=== PATIENT | male | born 1935 | race Caucasian/White ===

== ENCOUNTER 2016-12-01 19:24 | Inpatient (IN) ==
[2016-12-01] MEDS ORDERED: ALBUTEROL/IPRATROPIUM 2.5mg-0.5mg/3ml NEB AEROSOL ONE (19:45)
--- OUTSIDE RECORDS SUMMARY | 2016-12-01 19:45 | External Medical Summary | Referral Summary ---
:1935 Author Organization [facility] Address [address] [place] [address] [place] [address] Care Team Providers Name Role Phone Maria Roldan Primary Care Physician Encounter VC Date(s): 09/23/14 - 09/23/14 [facility] [place] [phone] [place] Discharge Disposition: 01-Home or Self Care Attending Physician: Gil Anders APRN Admitting Physician: Gil Anders APRN Vital Signs No data available for this section Problem List No data available for this section Allergies, Adverse Reactions, Alerts No data available for this section Medications Depakote 500 mg oral delayed release tablet See Instructions, TAKE ONE TABLET BY MOUTH TWICE A DAY, # 60 tabs, eRx: [facility] #[id number], TAKE ONE TABLET BY MOUTH TWICE A DAY Start Date: 02/11/15 Status: OrderedJanuvia 100 mg oral tablet 100 mg 1 tabs, Oral, Daily, # 90 tabs, 3 Refill(s), Pharmacy: [facility] # [id number] Start Date: 09/23/14 Status: OrderedLevemir FlexPen 100 units/mL subcutaneous solution See Instructions, SubCutaneous 7 UNITS AM AND 18 UNITS PM, # 1 boxes, 3 Refill(s ), [facility] #[id number], SubCutaneous 7 UNITS AM AND 18 UNITS PM Start Date: 09/25/14 Status: Ordered Results No data available for this section Immunizations No data available for this section Procedures No data available for this section Social History No data available for this section Assessment and Plan No data available for this section
--- OUTSIDE RECORDS SUMMARY | 2016-12-01 19:45 | External Medical Summary ---
:1935 Author Organization eClinical[employer] Care Team Providers Name Role Phone Wilbur Yu Provider Role Unavailable Allergies No Known Allergies Problems Problem Type Condition ICD-9 Code Onset Dates Condition Status Problem Hiatal hernia 553.3 Active Problem Type II diabetes mellitus 250.00 Active Problem Edema 782.3 Active Problem Basal cell carcinoma of scalp 173.41 Active and skin of neck Problem Allergic rhinitis 477.9 Active Problem Skin lesion of hand 709.9 Active Problem Bipolar 1 disorder, mixed 296.60 Active Problem Carotid stenosis 433.10 Active Problem Coronary atherosclerosis 414.00 Active Problem Asthma 493.90 Active Problem V tach 427.1 Active Problem PSA elevation 790.93 Active Problem Incontinence of urine 788.30 Active Problem Encounter for long-term V58.69 Active (current) use of other medications Problem Pulmonary hypertension 416.8 Active Problem Hyperlipidemia 272.4 Active Problem LVH (left ventricular 429.3 Active hypertrophy) Problem 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
--- OUTSIDE RECORDS SUMMARY | 2016-12-01 19:45 | External Medical Summary | Referral Summary ---
:1935 Author Organization [facility] Address [address] [place] [address] [place] [address] Care Team Providers Name Role Phone Maria Roldan Primary Care Physician Encounter VC Date(s): 11/11/14 - 11/11/14 [facility] [place] [phone] [place] Discharge Disposition: [...] TWICE A DAY, # 60 tabs, eRx: [facility] #[id number], TAKE ONE TABLET BY MOUTH TWICE A DAY Start Date: 02/11/15 Status: OrderedJanuvia 100 mg oral tablet 100 mg 1 tabs, Oral, Daily, # 90 tabs, 3 Refill(s), Pharmacy: [facility] # [id number] Start Date: 09/23/14 Status: OrderedLevemir FlexPen 100 units/mL subcutaneous solution See Instructions, SubCutaneous 7 UNITS AM AND 18 UNITS PM, # 1 boxes, 3 Refill(s ), [facility][id number], SubCutaneous 7 UNITS AM AND 18 UNITS PM Start Date: 09/25/14 Status: Ordered Results No data available for this section Immunizations No data available for this section Procedures No data available for this section Social History No data available for this section Assessment and Plan No data available for this section
--- OUTSIDE RECORDS SUMMARY | 2016-12-01 19:45 | External Medical Summary ---
:1935 Author Organization eClinicalWorks Care Team Providers Name Role Phone Wilbur Yu Provider Role Unavailable Allergies, Adverse Reactions, Alerts Substance Reaction Event Type antihistamine Info Not Available Non Drug Allergy Problems Problem Type Condition ICD-9 Code Onset [...] 427.1 Active Problem PSA elevation 790.93 Active Assessment Type II diabetes mellitus 250.00 Active Assessment Dyspnea 786.09 Active Problem Incontinence of urine 788.30 Active Problem Encounter for long-term V58.69 Active (current) use of other medications Problem Pulmonary hypertension 416.8 Active Problem Hyperlipidemia 272.4 Active Problem LVH (left ventricular 429.3 Active hypertrophy) Problem 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 Active Medications Medication Code Code Instructions Start End Status Dosage System Date NDC 18773-8 100 MG Orally 1 tablet 277-28 Once a day Aspirin NDC 19393-4 325 MG Orally 1 tablet 014-27 Once a day Saw [place] NDC (null) daily 100mg Multiple NDC (null) not defined Vitamin Lycopene NDC ____ not defined Vitamin C NDC ____ not defined GlipiZIDE XL NDC ____ not defined Magnesium NDC (null) daily 400mg Levemir NDC 48672-2 100 UNIT/ML INJECT 14 UNITS Flexpen 439-10 SUBCUTANEOUSLY EVERY DAY [place] 3 NDC (null) 1200 MG BID not defined Metoprolol NDC 98038-3 50 MG Orally one half tab Tartrate 733-01 Twice a day Pepcid AC NDC ____ not defined Flomax NDC 32646-0 0.4 MG Orally 1 capsule 30 058-01 Once a day minutes after the same meal each day Pulmicort [facility] 39568-9 180 MCG/ACT 2 puffs Flexhaler 916-12 Inhalation Twice a day Divalproex [facility] 80192-4 500 MG TAKE 1 TABLET BY Sodium 441-01 MOUTH TWO TIMES A DAY Calcium NDC ____ not defined Procedures Procedure Coding System Code Date Venipuncture CPT-4 36297 May 21, 2014 CBC Automated w Differential CPT-4 10621 May 21, 2014 Xray Chest Frontal & Lateral CPT-4 11328 May 21, 2014 Hemoglobin, Glycosylated CPT-4 30507 May 21, 2014 Comp Metabolic Panel CPT-4 50745 May 21, 2014 Est PT OVOP Service CPT-4 04088 May 21, 2014 Results No Known Results Summary Purpose eClinicalWorks Submission
--- OUTSIDE RECORDS SUMMARY | 2016-12-01 19:45 | External Medical Summary | Referral Summary ---
:1935 Author Organization [facility] Address [address] [place] [address] [place] [address] Care Team Providers Name Role Phone Maria Roldan Primary Care Physician Encounter VC Date(s): 12/05/14 - 12/05/14 [facility] [place] [phone] [place] Discharge Disposition: [...] TWICE A DAY, # 60 tabs, eRx: [facility] #[id number], TAKE ONE TABLET BY MOUTH TWICE A DAY Start Date: 02/11/15 Status: OrderedJanuvia 100 mg oral tablet 100 mg 1 tabs, Oral, Daily, # 90 tabs, 3 Refill(s), Pharmacy: [facility] # [id number] Start Date: 09/23/14 Status: OrderedLevemir FlexPen 100 units/mL subcutaneous solution See Instructions, SubCutaneous 7 UNITS AM AND 18 UNITS PM, # 1 boxes, 3 Refill(s ), [facility][id number], SubCutaneous 7 UNITS AM AND 18 UNITS PM Start Date: 09/25/14 Status: Ordered Results No data available for this section Immunizations No data available for this section Procedures No data available for this section Social History No data available for this section Assessment and Plan No data available for this section
--- OUTSIDE RECORDS SUMMARY | 2016-12-01 19:45 | External Medical Summary | Referral Summary ---
:1935 Author Organization [facility] Address [address] [place] [address] [place] [address] Care Team Providers Name Role Phone Maria Roldan Primary Care Physician Encounter VC Date(s): 11/04/14 - 11/04/14 [facility] [place] [place] [phone] [place] Discharge Disposition: [...] TWICE A DAY, # 60 tabs, eRx: [facility] #[id number], TAKE ONE TABLET BY MOUTH TWICE A DAY Start Date: 02/11/15 Status: OrderedJanuvia 100 mg oral tablet 100 mg 1 tabs, Oral, Daily, # 90 tabs, 3 Refill(s), Pharmacy: [facility] # [id number] Start Date: 09/23/14 Status: OrderedLevemir FlexPen 100 units/mL subcutaneous solution See Instructions, SubCutaneous 7 UNITS AM AND 18 UNITS PM, # 1 boxes, 3 Refill(s ), [facility][id number], SubCutaneous 7 UNITS AM AND 18 UNITS PM Start Date: 09/25/14 Status: Ordered Results No data available for this section Immunizations No data available for this section Procedures No data available for this section Social History No data available for this section Assessment and Plan No data available for this section
--- OUTSIDE RECORDS SUMMARY | 2016-12-01 19:45 | External Medical Summary | Referral Summary ---
:1935 Author Organization [facility] Address [address] [place] [address] [place] [address] Care Team Providers Name Role Phone Maria Roldan Primary Care Physician Encounter VC Date(s): 10/29/14 - 10/29/14 [facility] [place] [phone] [place] Discharge Disposition: 01-Home or Self Care Attending Physician: Maria Roldan MD Admitting Physician: Maria Roldan MD Vital Signs No data available for this section Problem List No data available for this section Allergies, Adverse Reactions, Alerts No data available for this section Medications Depakote 500 mg oral delayed release tablet See Instructions, TAKE ONE TABLET BY MOUTH TWICE A DAY, # 60 tabs, eRx: [facility] #[id number], TAKE ONE TABLET BY MOUTH TWICE A DAY Start Date: 02/11/15 Status: OrderedJanuvia 100 mg oral tablet 100 mg 1 tabs, Oral, Daily, # 90 tabs, 3 Refill(s), [id number] Start Date: 09/23/14 Status: OrderedLevemir FlexPen 100 units/mL subcutaneous solution See Instructions, SubCutaneous 7 UNITS AM AND 18 UNITS PM, # 1 boxes, 3 Refill(s ), [facility][id number], SubCutaneous 7 UNITS AM AND 18 UNITS PM Start Date: 09/25/14 Status: Ordered Results No data available for this section Immunizations No data available for this section Procedures No data available for this section Social History No data available for this section Assessment and Plan No data available for this section
--- OUTSIDE RECORDS SUMMARY | 2016-12-01 19:45 | External Medical Summary | Referral Summary ---
:1935 Author Organization [facility] Address [address] [place] [address] [place] [phone] Care Team Providers Name Role Phone Maria Roldan Primary Care Physician Encounter VC Date(s): 10/11/14 - 10/11/14 [facility] [place] [phone] [place] Discharge Disposition: [...] TWICE A DAY, # 60 tabs, eRx: [facility] #[id number], TAKE ONE TABLET BY MOUTH TWICE A DAY Start Date: 02/11/15 Status: OrderedJanuvia 100 mg oral tablet 100 mg 1 tabs, Oral, Daily, # 90 tabs, 3 Refill(s), [facility] [id number] Start Date: 09/23/14 Status: OrderedLevemir FlexPen 100 units/mL subcutaneous solution See Instructions, SubCutaneous 7 UNITS AM AND 18 UNITS PM, # 1 boxes, 3 Refill(s ), [facility][id number], SubCutaneous 7 UNITS AM AND 18 UNITS PM Start Date: 09/25/14 Status: Ordered Results No data available for this section Immunizations No data available for this section Procedures No data available for this section Social History No data available for this section Assessment and Plan No data available for this section
--- OUTSIDE RECORDS SUMMARY | 2016-12-01 19:45 | External Medical Summary | Referral Summary ---
:1935 Author Organization [facility] [address] [place] [address] Care Team Providers Name Role Phone Maria Roldan Primary Care Physician Encounter VC Date(s): 09/14/14 - 09/14/14 [facility] [place] [phone] [place] Discharge Disposition: 01-Home or Self Care Attending Physician: Gil Anders APRN Admitting Physician: Gil Adners APRN Vital Signs No data available for this section Problem List No data available for this section Allergies, Adverse Reactions, Alerts No data available for this section Medications Depakote 500 mg oral delayed release tablet See Instructions, TAKE ONE TABLET BY MOUTH TWICE A DAY, # 60 tabs, eRx: [facility] #[id number], TAKE ONE TABLET BY MOUTH TWICE A DAY Start Date: 02/11/15 Status: OrderedJanuvia 100 mg oral tablet 100 mg 1 tabs, Oral, Daily, # 90 tabs, 3 Refill(s), Pharmacy: [facility] # [id number] Start Date: 09/23/14 Status: OrderedLevemir FlexPen 100 units/mL subcutaneous solution See Instructions, SubCutaneous 7 UNITS AM AND 18 UNITS PM, # 1 boxes, 3 Refill(s ), [facility][id number], SubCutaneous 7 UNITS AM AND 18 UNITS PM Start Date: 09/25/14 Status: Ordered Results No data available for this section Immunizations No data available for this section Procedures No data available for this section Social History No data available for this section Assessment and Plan No data available for this section
--- OUTSIDE RECORDS SUMMARY | 2016-12-01 19:45 | External Medical Summary ---
[...] Instructions Start End Status Dosage System Date Date Ong 3 NDC (null) 1200 MG BID not defined Lycopene NDC ____ not defined Pepcid AC NDC ____ not defined Divalproex NDC 96145-4 500 MG TAKE 1 TABLET BY Sodium 441-01 MOUTH TWO TIMES A DAY Vitamin C NDC ____ not defined Saw [place] NDC (null) daily 100mg Aspirin NDC 00205-6 325 MG Orally 1 tablet 014-27 Once a day Pulmicort NDC 97411-2 180 MCG/ACT 2 puffs Flexhaler 916-12 Inhalation Twice a day Flomax NDC 06424-6 0.4 MG Orally 1 capsule 30 058-01 Once a day minutes after the same meal each day GlipiZIDE XL NDC ____ not defined Calcium NDC ____ not defined Metoprolol NDC 94612-5 50 MG Orally one half tab Tartrate 733-01 Twice a day Januvia NDC 95879-6 100 MG Orally 1 tablet 277-28 Once a day Multiple NDC (null) [place] [address]-5 100 UNIT/ML INJECT 14 UNITS Flexpen 439-10 SUBCUTANEOUSLY EVERY DAY Magnesium NDC (null) daily 400mg Results No Known Results Summary Purpose eClinicalWorks Submission
--- OUTSIDE RECORDS SUMMARY | 2016-12-01 19:45 | External Medical Summary | Summary of Care ---
:1935 Author Name Otoniel Raymundo M.D. Address [address] [place] [address] [place] [address] Care Team Providers Name Role Phone Otoniel Raymundo M.D. Unavailable Unavailable Rigo Schmidt Unavailable Unavailable Unavailable Unavailable Unavailable Functional Status Functional Status Health Issues Name Dates Details Functional status health issues are not documented Status: Cognitive Status Health Issues Name Dates Details Cognitive status health issues are not documented Status: Problems Name Dates Details Urinary frequency (788.41, R35.0) Status: Active Urinary dribbling (788.35, N39.43) Status: Active Incontinent of urine (788.30, R32) Status: Active Arthritis (716.90, M19.90) Status: Active Left ankle pain (719.47, M25.572) Status: Active BPH (benign prostatic hypertrophy) (600.00, N40.0) Status: Active Edema (782.3, R60.9) Status: Active Atherosclerosis (440.9, I70.90) Status: Active Cardiac dysrhythmia (427.9, I49.9) Status: Active Chronic kidney disease (585.9, N18.9) Status: Active Deep vein thrombosis (453.40, I82.409) Status: Active Diabetes (250.00, E11.9) Status: Active Dyslipidemia (272.4, E78.5) Status: Active Hypertension (401.9, I10) Status: Active Paroxysmal atrial fibrillation with RVR (427.31, I48.0) Status: Active Pulmonary embolism (415.19, I26.99) Status: Active Ventricular tachycardia (paroxysmal) (427.1, I47.2) Status: Active Prophylactic antibiotic (V58.62, Z79.2) Status: Active BPH with obstruction/lower urinary tract symptoms (600.01, N40.1) Status: Active Medications Name Dates Details Metoprolol Tartrate 50 MG Oral Tablet Refills: 0 Active Tamsulosin HCl 0.4 MG CP24 Refills: 0 Active Divalproex Sodium 500 MG Oral Tablet Delayed Release Refills: 0 Active Levemir FlexPen 100 UNIT/ML SOLN Refills: 0 Active Januvia 100 MG Oral Tablet Refills: 0 Active Ciprofloxacin HCl - 500 MG Oral Tablet take 1 tablet before cysto procedure with Dr. Raymundo. Quantity: 1 Refills: 0 Otoniel Raymundo M.D. 12-Nov-2015 Active Allergies and Adverse Reactions Name Dates Details No Known Drug Allergies (Allergy) Status: Active Past Medical History Name Dates Details History of H/O right coronary artery stent placement (V45.82, Z95.5) Status : Resolved Procedures Procedure Dates Details History of Knee Arthroplasty History of Total Knee Arthroplasty Procedures not documented Immunization Name Dates Details Immunizations not documented Family History Unknown Family Member Name Dates Details Family history of Coronary artery disease (414.00, I25.10) Comments: Family History Status: Active Mother Name Dates Details Family history of kidney disease (V18.69, Z84.1) Status: Active Father Name Dates Details Family history of myocardial infarction (V17.3, Z82.49) Status: Active Social History Name Dates Details - Status: Smoking Status Name Dates Details Never smoker Vital Signs Date Test Result Details 12-Nov-2015 13:37 BP Systolic 166 mm[Hg] Status: Comments: Location: ; Position: BP Diastolic 91 mm[Hg] Status: Comments: Location: ; Position: Heart Rate 62 /min Status: Comments: Location: ; Height 67 in Status: Weight 199.4 lb Status: Body Mass Index Calculated 31.23 kg/m2 Status: Body Surface Area Calculated 2.02 m2 Status: Results Date Description Value Details Results not documented Plan of Care Name Dates Details Planned Observations Planned Goals not documented Planned Encounters Appointment; Provider: Otoniel Raymundo M.D. On 19-Nov-2015 15:45 Interventions Provided Medication ChangesCiprofloxacin HCl - 500 MG Oral Tablet - Start Instructions Name Dates Details Instructions not documented Encounters Appointment; Otoniel Raymundo M.D. On 12-Nov-2015 Encounter Diagnosis: Problem not documented 13:15
--- OUTSIDE RECORDS SUMMARY | 2016-12-01 19:45 | External Medical Summary | Summary of Care ---
:1935 Author Name Otoniel Raymundo M.D. Address [address] [place] [address] [place] [address] Care Team Providers Name Role Phone Otoniel [...] Encounters Appointment; Provider: Otoniel Raymundo M.D. On 19-May-2016 13:00 Instructions Name Dates Details Instructions not documented Encounters Appointment; Otoniel Raymundo M.D. On 12-Nov-2015 Encounter Diagnosis: Problem not documented 13:15
--- OUTSIDE RECORDS SUMMARY | 2016-12-01 19:45 | External Medical Summary | Referral Summary ---
:1935 Author Organization [facility] Address [address] [place] [address] [place] [address] Care Team Providers Name Role Phone Maria Roldan Primary Care Physician Encounter VC Date(s): 07/29/14 - 07/29/14 [facility] [place] [phone] [place] Discharge Disposition: 01-Home or Self Care Attending Physician: Gil Anders APRN Admitting Physician: Gil Anders APRN Vital Signs No data available for this section Problem List No data available for this section Allergies, Adverse Reactions, Alerts No data available for this section Medications Depakote 500 mg oral delayed release tablet 500 mg 1 tabs, Oral, BID, [place] [facility] [phone], # 180 tabs, 3 Refill(s) , 1 tabs Oral BID Start Date: 01/24/15 Status: OrderedJanuvia 100 mg oral tablet 100 mg 1 tabs, Oral, Daily, # 90 tabs, 3 Refill(s), Pharmacy: [facility] # [id number] Start Date: 09/23/14 Status: OrderedLevemir FlexPen 100 units/mL subcutaneous solution See Instructions, SubCutaneous 7 UNITS AM AND 18 UNITS PM, # 1 boxes, 3 Refill(s ), [facility][id number], SubCutaneous 7 UNITS AM AND 18 UNITS PM Start Date: 09/25/14 Status: Ordered Results No data available for this section Immunizations No data available for this section Procedures No data available for this section Social History No data available for this section Assessment and Plan No data available for this section
--- NOTE | 2016-12-01 19:50 | Emergency Department Report ---
URI/Sore Throat HPI - General Chief Complaint: Upper Respiratory Infection Stated Complaint: soa Time Seen by Provider: 12/01/16 19:37 Source: patient, family Mode of arrival: ambulatory Limitations: no limitations - History of Present Illness HPI Narrative: PT PRESENTS WITH C/O SOA FOR THE LAST SEVERAL WEEKS. HE DENIES ANY CHF OR COPD HISTORY. FAMILY IN THE ROOM STATES HE HAS FREQUENT BOUTS OF BRONCHITIS. HE DOES REPORT PEDAL EDEMA. AND SAYS HIS RESPIRATORY DIFFICULTIES ARE INTERMITTENT MD Complaint: cough Onset (ago): day(s) Associated symptoms: shortness of breath - Related Data Home Medications Medication Instructions Recorded Confirmed Ascorbic Acid [Vitamin C] 500 mg PO DAILY #0 02/10/16 12/01/16 Aspirin 325 mg PO DAILY #0 02/10/16 12/01/16 Famotidine [Pepcid AC] 20 mg PO DAILY #0 02/10/16 12/01/16 Multivitamin [Multi-Day Vitamins] 1 tab PO DAILY #0 02/10/16 12/01/16 Calcium Carbonate [Calcium] 500 mg PO DAILY 12/01/16 12/01/16 Calcium Polycarbophil [Fiber] 625 mg PO BID 12/01/16 12/01/16 Cinnamon Bark [Cinnamon] 500 mg PO HS 12/01/16 12/01/16 Ezetimibe/Simvastatin [Vytorin 1 tab PO HS 12/01/16 12/01/16 10-20 mg Tablet] Furosemide [Lasix] 20 mg PO DAILY 12/01/16 12/01/16 Insulin Detemir [Levemir Flextouch] 25 unit SQ BID 12/01/16 12/01/16 Lycopene 10 mg PO DAILY 12/01/16 12/01/16 Metoprolol Tartrate [Lopressor] 25 mg PO BID 12/01/16 12/01/16 Niacin ER [Niaspan] 500 mg PO HS 12/01/16 12/01/16 [place]-3/Dha/Epa/Fish Oil [Fish Oil 1 cap PO BID 12/01/16 12/01/16 [place]-3 EC 1,200 mg] Saw [place] 100 mg PO HS 12/01/16 12/01/16 glipiZIDE [Glipizide Xl] 7.5 mg PO DAILY 12/01/16 12/01/16 Previous Rx's Medication Instructions Recorded Budesonide Flexhaler [Pulmicort 2 puff INH BID 7 Days #0 02/16/16 180 Mcgflexhaler] Divalproex Sodium [Depakote] 500 mg PO BID 7 Days #14 02/16/16 Sitagliptin Phosphate [Januvia] 100 mg PO DAILY 7 Days #0 02/16/16 Tamsulosin HCl [Flomax] 0.4 mg PO HS 7 Days #0 02/16/16 Allergies Allergy/AdvReac Type Severity Reaction Status Date / Time No Known Allergies Allergy Verified 12/01/16 19:52 Review of Systems All systems: reviewed and negative except as stated Constitutional: Denies: fever, weakness Cardiovascular: Denies: chest pain Respiratory: Reports: cough, dyspnea, wheezes Gastrointestinal: Denies: abdominal pain Neurological: Reports: other (DIZZINESS) PFSH Patient Stated Medical History Coronary Artery Disease Yes Asthma Yes Bronchitis Yes Diabetes Mellitus Type 1 Yes - Social History Smoking status: Never smoker Physical Exam - Limitations Limitations: no limitations - General General appearance: alert, in distress - Normal Exams: Eyes:: Pupils are PERRLA w/ EOMI Neck:: Full range of motion, without adenopathy Cardiovascular:: Regular rate and rhythm, without murmur or gallop (NO PEDAL EDEMA), Pulses 2+ all extremities Abdomen:: Bowel sounds positive, soft, non-tender, non-distended Musculoskeletal:: No tenderness, or deformity noted, good range of motion, all extremities Integumentary:: No rashes Neurological:: Patient is alert (TETLIN), and oriented Psychiatric:: Patient exhibits, appropriate attention, emotion and affect - Expanded Respiratory Exam Location: Left: decreased breath sounds, Right: decreased breath sounds Course - Consultations Consultation #1: MADDOX Time: 20:40 Vital Signs Pulse Rate 61 12/01/16 19:30 Blood Pressure 198/98 H 12/01/16 19:30 Temperature 97.7 F 12/01/16 19:35 Pulse Rate 56 L 12/01/16 20:16 Respiratory Rate 22 12/01/16 20:16 Blood Pressure 181/84 H 12/01/16 20:16 Pulse Oximetry 94 12/01/16 20:16 Upper Respiratory Infection - MDM Narrative Medical decision making narrative: PT TOLERATED DUONEB TREATMENT HOWEVER DID NOT RECEIVE MUCH RELIEF PRIOR TO LABS RESULTED. BNP SIGNIFICANTLY ELEVATED. EKG SHOWS LVH, AND CXR IS CONSISTENT WITH PLEURAL EFFUSIONS 2/[address] MADDOX CONTACTED FOR ADMISSION. QUESTIONS OF PT AND FAMILY ANSWERED. PT TO HAVE ADDITIONAL LASIX IN ED - Differential Diagnosis Differential diagnosis: Likely: upper respiratory infection, sinusitis, viral infection, bronchitis - Lab Data Attestation: I reviewed the patient's lab results. Result diagrams: 12/01/16 20:09 12/01/16 20:09 Lab Results 12/01/16 12/01/16 12/01/16 Range/Units 20:09 20:09 20:09 WBC 6.7 (4.5-11.0) T/MM3 RBC 4.34 L (4.50-5.90) M/MM3 Hgb 13.3 L (13.5-17.5) GM/DL Hct 41.4 (41-53) % MCV 95.4 (80-100) UM3 MCH 30.6 (26-34) UUG MCHC 32.1 (31-37) GM/DL RDW Std Deviation 46.4 (36.9-50.2) FL Plt Count 118 L (130-400) T/MM3 MPV 12.4 (9.4-12.4) UM3 Immature Gran % (Auto) 0.7 H (0.0-0.5) % Neut % (Auto) 63.1 (33-66) % Lymph % (Auto) 20.8 L (23-45) % [place] % (Auto) 13.9 H (0-9.0) % Eos % (Auto) 0.9 (0-4) % Baso % (Auto) 0.6 (0-2) % Neut # 4.2 (1.8-7.7) T/MM3 Lymph # 1.4 (1-4.8) T/MM3 [place] # 0.9 H (0-0.8) T/MM3 Eos # 0.1 (0-0.5) T/MM3 Baso # 0.0 (0-0.2) T/MM3 Abs Immat Gran (auto) 0.05 H (0.00-0.03) T/MM3 Turbidity < 20 (0-20) Sodium 148 H (134-144) MEQ/L Potassium 4.7 (3.6-5) MEQ/L Chloride 109 H (98-107) MEQ/L Carbon Dioxide 29 (22-30) MEQ/L Anion Gap 10 (5-15) MEQ/L BUN 37.0 H (9-20) MG/DL Creatinine 1.4 (0.8-1.5) MG/DL GFR Calculation 49 BUN/Creatinine Ratio 26 (6-26) RATIO Glucose 196 H (75-110) MG/DL Calculated Osmolality 298 H (261-280) MOSM/KG Calcium 9.1 (8.4-10.2) MG/DL Total Bilirubin 0.50 (0.20-1.30) MG/DL Icterus Index < 2 (0-7) AST 28 (17-59) U/L ALT 41 (21-72) U/L Alkaline Phosphatase 53 (38-126) U/L Troponin I 0.015 (0-0.12) ng/ml B-Natriuretic Peptide 5800 H (0-175) pg/mL Total Protein 7.0 (6.3-8.2) G/DL Albumin 4.1 (3.5-5.0) G/DL Globulin 2.9 (2.4-3.6) G/DL Albumin/Globulin Ratio 1.4 (1.1-2.2) RATIO Specimen Hemolysis < 15 < 15 (0-25) - Radiology Data Attestation: I reviewed the patient's radiology results. REPORT PER DR LOERA, BILATERAL PLEURAL EFFUSIONS CONSISTENT WITH CHF EXACERBATION - EKG Data EKG #1 Rate: bradycardia Interpretation: LVH Disposition Clinical Impression: CHF exacerbation Qualifiers: Congestive heart failure type: combined Qualified Code(s): I50.43 - Acute on chronic combined systolic (congestive) and diastolic (congestive) heart failure Diabetes Qualifiers: Diabetes mellitus type: type 1 Diabetes mellitus complication status: with unspecified complications Qualified Code(s): E10.8 - Type 1 diabetes mellitus with unspecified complications Hypertension Qualifiers: Hypertension type: essential hypertension Qualified Code(s): I10 - Essential ( primary) hypertension Disposition: To [facility] Acute Care Condition: Stable Time of Disposition: 21:05 - Seen By: midlevel
[2016-12-01] MEDS ORDERED: FUROSEMIDE 40 MG/4 ML INJECTION IVP ONE (20:50)
[2016-12-01] MEDS: SALINE FLUSH 10ml SYRINGE IVF PRN (21:04)
[2016-12-01] MEDS ORDERED: SALINE FLUSH 10ml SYRINGE IV PRN (22:02)
[2016-12-01 22:59] VITALS: BMI 28.8
--- NOTE | 2016-12-01 23:04 | History & Physical Report ---
<Adan Tom - Last Filed: 12/01/16 23:01> History of Present Illness Date: 12/01/16 Chief complaint: short of breath HPI: This is a 80 y/o male who lives in an independent living setting. The patient has a history of ischemic cardiomyopathy in the past. The patient had noticed increased shortness of breath over the past 3 weeks with PND and orthopnea. The patient was seen by nursing today and noticed increased dyspnea and hypertension. They recommended that he come into the ED for evaluation. In the ED the patient had a CXR that demonstrated increased bilateral pleural effusion with slight pulm vascular congestion. The patient was not significantly hypoxic but was wheezing. The patient at this time will be admitted for diuresis and further assessment of his CHf. Review of Systems Review of systems: no headache, no change in vision, is hard of hearing chronically, no neck or jaw pain, no chest pain, no heart palpitations, sx have been going on for 3 weeks. His sleeping is worsening . Has not notice significant edema to his legs. Unaware of what his weight is doing. mild abdomen pain with cough, bowel movements have been normal, no blood. no focal neuro complaints. 12 point ROS otherwise negative except for outlined above. [facility] Medical History Updates: CHF presumed ischemic, bronchitis, dm2, HTN, cholithiasis, gallstone pancreatitis, CAD s/p ISAURA x 2, paroxysmal atrail fibrillation, CKD 3, dyslipidmia, BPH Surgical History: ISAURA 2, right total knee - Social History Smoking status: Never smoker Substance use type: does not use Alcohol intake frequency: does not drink Housing: assisted living facility Current occupational status: retired Medications Home Medications Medication Instructions Recorded Confirmed Type Ascorbic Acid [Vitamin C] 500 mg PO DAILY #0 02/10/16 12/01/16 History Aspirin 325 mg PO DAILY #0 02/10/16 12/01/16 History Famotidine [Pepcid AC] 20 mg PO DAILY #0 02/10/16 12/01/16 History Multivitamin [Multi-Day Vitamins] 1 tab PO DAILY #0 02/10/16 12/01/16 History Calcium Carbonate [Calcium] 500 mg PO DAILY 12/01/16 12/01/16 History Calcium Polycarbophil [Fiber] 625 mg PO BID 12/01/16 12/01/16 History Cinnamon Bark [Cinnamon] 500 mg PO HS 12/01/16 12/01/16 History Furosemide [Lasix] 20 mg PO DAILY 12/01/16 12/01/16 History Insulin Detemir [Levemir Flextouch] 25 unit SQ BID 12/01/16 12/01/16 History Lycopene 10 mg PO DAILY 12/01/16 12/01/16 History Metoprolol Tartrate [Lopressor] 25 mg PO BID 12/01/16 12/01/16 History [place]-3/Dha/Epa/Fish Oil [Fish Oil 1 cap PO BID 12/01/16 12/01/16 History [place]-3 EC 1,200 mg] Saw [place] 100 mg PO HS 12/01/16 12/01/16 History Allergies Allergy/AdvReac Type Severity Reaction Status Date / Time No Known Allergies Allergy Verified 12/01/16 19:52 Exam Vital Signs: Temperature 97.7 F 12/01/16 19:35 Pulse Rate 56 L 12/01/16 20:16 Respiratory Rate 22 12/01/16 20:16 Blood Pressure 181/84 H 12/01/16 20:16 Pulse Oximetry 94 12/01/16 20:16 Height/Weight/BMI: Height 1.73 m Weight 86.1 kg Body Mass Index 28.8 - Constitutional Present: mild distress, well nourished, well developed, average body habitus, cooperative - Routine HEENT Exam Head: Present: normocephalic, atraumatic Eye: Present: EOMI, conjunctivae pink ENT: Present: mucous membranes moist - Routine Neck Exam Comments: neck somewhat obese, no obvious JVD @ 30 degree inclination - Routine Respiratory Exam Comments: decreased breath sounds. occasional wheeze on examination - Routine Cardiovascular Exam Present: RRR, no murmur. Absent: S3 Comments: careful ascultation did not produce an S3. High confidence in this. - Routine Abdominal Exam Present: soft, non tender - Routine Extremities Exam Comments: tr edema but really only just trace - Routine Skin Exam Present: intact, dry - Routine Neurological Exam Present: alert, oriented X3, CN II-XII intact. Absent: motor deficit, altered mental status - Routine Psychiatric Exam Present: normal affect Results - Labs CBC & Chem 7: 12/01/16 20:09 12/01/16 20:09 Labs: of note that the patient's plt are slightly depressed, otherwise no obvious abnormalities - Echocardiogram Echocardiogram: echo 12/16 with preserved LV function 64% EF - ECG Data Tracing #1 LAE, LVH, sinus grazyna - Imaging and Cardiology Chest x-ray Additional comments: bilateral pleural effusion, cardiomegaly, slight pulm vasc congestion. Assessment and Plan (1) CHF exacerbation Current visit: Yes Status: Acute 12/01/16 23:12 This patient has presumed ischemic cardiomyopathy. He is on daily diuretic therapy and b abel. Patient had an echo 9 months ago that was essentially normal. Not able to tell regarding diastolic component of echo. The patient with increased PND, orthopnea, but no real swelling. Not clear regarding weight gain. CXR is suspicious form mild failure. Admit, tele, rule out, diureses lasix Q12 hrs. order another echo to exclude anoccult event. Patient seems compliant with medications. Is followed by nursing. Continue b abel at least. get med rec done and further assess in am (2) DM type 2 (diabetes mellitus, type 2) Current visit: Yes Status: Acute (3) Diabetes Current visit: Yes Status: Acute 12/01/16 23:14 chronic. hold oral agent, continue insulin with correctional plan, adjust as indicated (4) CAD (coronary artery disease) Current visit: Yes Status: Acute 12/01/16 23:14 history of CAD in the past s/p ISAURA x 2. Patient without chest pain. appreciate diabetes and atypical nature of pain in this population of patient. rule out on tele. make further recommendations. should continue asa, b abel , statin when med rec is updated. It is plausible that the patient had a silent cardiac event recently which has exacerbated his recently documented recovering EF. (5) Thrombocytopenia Current visit: Yes Status: Acute 12/01/16 23:16 will not start lovenox etc for now. recheck. ? smolder ITP vs primary failure of bone marrow at this age. reassess and address with followup. (6) CKD stage 3 secondary to diabetes Current visit: Yes Status: Acute 12/01/16 23:17 stable for now. monitor with repeat labs in the am DVT Prophylaxis: SCD's GI Prophylaxis: Protonix Resuscitation Status: Full Code Hospital Course Summary Disclaimer: The visit summary below is not to be considered part of the above Progress Note. <Maria Del Carmen Saldana - Last Filed: 12/02/16 12:36> History of Present Illness Date: 12/02/16 [facility] Patient Stated Medical History Coronary Artery Disease Yes: 5 stents Asthma Yes Bronchitis Yes Diabetes Mellitus Type 1 Yes Exam Vital Signs: Temperature 97.6 F 12/02/16 11:33 Pulse Rate 55 L 12/02/16 11:33 Respiratory Rate 18 12/02/16 11:33 Blood Pressure 183/90 H 12/02/16 11:33 Pulse Oximetry 94 12/02/16 11:33 Height/Weight/BMI: Height 1.73 m Weight 85.3 kg Body Mass Index 28.8 Results - Labs CBC & Chem 7: 12/02/16 06:12 12/02/16 04:40 Assessment and Plan (1) CHF exacerbation Current visit: Yes Status: Acute (2) Diabetes Current visit: Yes Status: Acute (3) DM type 2 (diabetes mellitus, type 2) Current visit: Yes Status: Acute (4) CAD (coronary artery disease) Current visit: Yes Status: Acute (5) Thrombocytopenia Current visit: Yes Status: Acute (6) CKD stage 3 secondary to diabetes Current visit: Yes Status: Acute Assessment and Plan: 12/02/2016-Dr. Saldana I've seen and examined the patient. I agree with the H&P dictated above by Dr. Tom. Please see my changes/additions below. Chief complaint: Shortness of breath and cough for a few weeks History of present illness: Patient is a 80-year-old male who lives in independent living. His who helps him with his medications has been in detention for the past few weeks after having a knee replacement. He has been complaining of shortness of breath with PND and orthopnea for a couple of weeks. He is also been coughing and has foamy clear phlegm. He denies any chest pains. He has some chronic right shoulder pain which he thinks is from a rotator cuff injury. He denies any fevers or sweats. He states he gets chills when his blood sugars are low and that happens about once a week. He denies any nausea or vomiting. He occasionally has some mild diarrhea. He was admitted last night due to shortness of breath, pulmonary edema, congestive failure. He was started on IV Lasix and has been urinating frequently. He states he is breathing much better. His daughter came in and stated that she notices he seems to be breathing better as well today. He admits that he stopped taking his Lasix because it made him urinate so frequently. He was supposed to be on 20 mg once daily Past medical history Echocardiogram in February 2016 showing left atrial enlargement, LVH, EF of 55- 60%, subtle wall motion abnormality, mild diastolic dysfunction, moderate pulmonary hypertension He sees Dr. Oliva for cardiology care. He has seen Dr. Sahil Grijalva here as well. History of nonsustained V. tach bronchitis Type 2 diabetes mellitus Hypertension cholelithiasis Gallstone pancreatitis coronary artery disease with ISAURA 2 Paroxysmal A. fib Chronic kidney disease stage III Dyslipidemia BPH MRSA of the sputum Past surgical history Lap bobby February 2016 right total knee drug-eluting stent 2 Family history: CHF, CVA in his sister, [place] and his sister, mom with breast cancer, leukemia in one brother and sister Medications: Med list that he is actually taking is very different than the one in the initial med rec Vitamin C 500 mg daily Aspirin 325 mg daily Famotidine 20 mg daily Multivitamin daily Calcium carbonate 500 mg daily Depakote 500 mg twice daily Insulin Levemir 30 mg twice a day Metoprolol tartrate 25 mg twice a day [place]-3 fish oil 1 cap by mouth twice a day Saw palmetto 100 mg daily at bedtime Januvia 100 mg daily Pulmicort Turbuhaler 2 puffs twice a day Magnesium 400 mg by mouth twice a day Flomax 0.4 mg by mouth twice a day He states he is no longer taking fiber pills, cinnamon bark, Vytorin, Lasix, lycopene, or glipizide. No known drug allergies Comprehensive review of systems He has had a rash on his abdomen and back for 65 years. He has chronic right shoulder pain. He denies any other complaints other than that above in history of present illness Physical exam GEN-alert, no acute distress HEENT-sclera anicteric, pupils are equal, or varix is moist NECK-supple, no JVD appreciated CV-regular rate and rhythm, no significant murmur CHEST-currently clear to auscultation bilaterally ABD-soft, nontender with positive bowel sounds -no [place] EXT-trace edema NEURO-no focal deficits SKIN-warm and dry he has a mild erythematous rash on his abdomen and back which he states has been there for 65 years Lab this morning white count is 7, hemoglobin 12.4, platelets 92. Sodium is 148 , BUN 36, creatinine 1.3. Troponin is negative 3. BNP is 5800 Impression CHF exacerbation likely secondary to the patient not taking his Lasix due to frequent urination Type 2 diabetes mellitus-patient reports labile blood sugars at home and states 2 weeks ago his Levemir was increased from 25 twice a day to 30 twice a day Coronary artery disease Thrombocytopenia mild Chronic kidney disease Possible mild memory deficits Plan Continue IV Lasix PT OT eval and treat Monitor electrolytes closely with diuresis SCDs for DVT prophylaxis Possible discharge in the next 1-2 days Echocardiogram was obtained and is pending Chest x-ray tomorrow Hospital Course Summary Disclaimer: The visit summary below is not to be considered part of the above Progress Note.
--- NOTE | 2016-12-02 07:57 | XRay Report ---
INDICATION: COUGH soa PROCEDURE: CHEST 2-VIEWS UPRIGHT (PA & LAT) Encounter: Initial COMPARISON: February 13, 2016 FINDINGS: Lungs are better inflated on the prior study. There are mildly increased interstitial markings in the mid to lower lung zones and trace pleural effusions with lower lobe airspace opacities. No pneumothorax. Heart size and mediastinal contours are stable. Impression: Mild pulmonary edema, probably due to congestive failure. Small area of developing pneumonia cannot be entirely excluded in the lower lobes. .
[2016-12-02] MEDS: BUDESONIDE INH.SOLN 0.5mg/2ml NEB AEROSOL SCH ×2 (09:04→20:36)
[2016-12-02] MEDS: ALBUTEROL 2.5mg/3ml (0.083%) NEB AEROSOL PRN ×2 (09:17→20:37)
[2016-12-02] MEDS: FUROSEMIDE 40 MG/4 ML INJECTION IVP SCH ×2 (09:48→17:08)
[2016-12-02] MEDS: DIVALPROEX 500 MG TABLET PO SCH ×2 (09:48→20:23)
[2016-12-02] MEDS: ASPIRIN 325 MG TABLET PO SCH (09:48)
[2016-12-02] MEDS: INSULIN DETEMIR 100unit/ml INJECTION SQ SCH ×2 (09:49→20:23)
[2016-12-02] MEDS: SALINE FLUSH 10ml SYRINGE IVF PRN (09:55)
[2016-12-02] MEDS: FAMOTIDINE 20 MG TABLET PO SCH (10:46)
[2016-12-02] MEDS ORDERED: TAMSULOSIN 0.4 MG CAPSULE PO SCH (21:00)
--- NOTE | 2016-12-02 21:39 | Echocardiogram ---
DATE OF STUDY 12/02/2016 INDICATIONS Congestive heart failure. TECHNICAL QUALITY Technically good 2D, M-mode, Doppler echocardiographic images were submitted for interpretation. FINDINGS 1. CARDIAC CHAMBERS: The left atrium is dilated. Left ventricle is normal in size. The aortic root diameter of 4.0 cm is mildly dilated. The right heart appears to be normal in size. Normal RV contractility. Atherosclerosis in the aortic wall is noted. 2. LEFT VENTRICLE: Borderline LVH is present, measuring 10 mm in the posterior wall, 11 mm in the septal wall. Wall motion analysis is abnormal with basal anterior wall and septal hypokinesis, more prominent in the inferior septum. Inferolateral wall appears hypokinetic. Ward contractility appears preserved. LV systolic dysfunction of a mild degree appears to be present with an ejection fraction estimated at about 45%. Diastolic function parameters show E/A ratio of 1.4, E/e' ratio of 16.8, suggestive of grade 2/4 diastolic dysfunction (pseudonormal pattern). 3. VALVES: Aortic and mitral valve exhibit [id number] sclerotic changes, most evident in the posterior mitral annulus. Leaflet excursion and valve opening appears normal. Tricuspid valve structure and motion appear normal. Normal valve excursion. 4. DOPPLER: Mild insufficiency involving mitral, tricuspid and pulmonic valves , none of hemodynamic significance. No evidence of valvular stenosis. 5. No evidence of pericardial effusion, intracardiac masses, thrombi, vegetations or shunts. 6. Flow velocities are reduced at the aortic valve level and LVOT level, suggestive of reduced cardiac output. 7. Central venous pressure appears elevated based on partial respiratory variation of less than 50% and mildly dilated IVC. IMPRESSION 1. Left atrial enlargement. 2. Mild ischemic cardiomyopathy. Regional wall motion abnormality as described above suggestive of coronary artery disease with ejection fraction estimated at 45%. 3. Diastolic dysfunction grade 2/4 (pseudonormal pattern). 4. Mild mitral regurgitation. 5. Pulmonary hypertension, systolic PA pressure of 56 mmHg, with normal RV size and systolic function. 6. Elevated central venous pressure. 7. Mitral annular calcification. 8. Reduced cardiac output. RECOMMENDATION Cardiology consultation for suspected coronary artery disease. MTDD
[2016-12-02] MEDS: ACETAMINOPHEN 325 MG TABLET PO PRN (23:30)
[2016-12-03] MEDS: ACETAMINOPHEN 325 MG TABLET PO PRN (04:06)
--- NOTE | 2016-12-03 08:20 | XRay Report ---
Indication: pulm edema PROCEDURE: XR chest 1V: Encounter: Initial Comparison: December 01, 2016 Findings: Lungs are hypoinflated. Pulmonary vascular prominence has decreased. No new areas of consolidation. No pneumothorax. Probable trace effusions. Heart size and mediastinal contours are stable. Hiatal hernia. Impression: Improving pulmonary edema. .
[2016-12-03] MEDS: FUROSEMIDE 40 MG/4 ML INJECTION IVP SCH ×2 (08:57→17:16)
[2016-12-03] MEDS: ASPIRIN 325 MG TABLET PO SCH (08:57)
[2016-12-03] MEDS: FAMOTIDINE 20 MG TABLET PO SCH (09:03)
[2016-12-03] MEDS: DIVALPROEX 500 MG TABLET PO SCH (09:03)
[2016-12-03] MEDS: INSULIN DETEMIR 100unit/ml INJECTION SQ SCH (09:03)
[2016-12-03] MEDS: BUDESONIDE INH.SOLN 0.5mg/2ml NEB AEROSOL SCH (10:38)
[2016-12-03] MEDS ORDERED: SITAGLIPTIN 100 MG TABLET PO SCH (10:45)
[2016-12-03 10:51] VITALS: O2SAT 93
[2016-12-03 11:56] VITALS: BP 151/82; PULSE 60; RESP 20; TEMP 97.6
[2016-12-03] MEDS ORDERED: PNEUMOCOCCAL VAC ADMIN CHARGE INJ ONE (15:29)
--- NOTE | 2016-12-03 15:36 | Discharge Summary ---
<Michelle Mabry - Last Filed: 12/03/16 16:32> Discharge Information Date of admission: 12/01/16 21:43 Anticipated date of discharge: 12/03/16 Attending Physician: Maria Del Carmen Saldana MD Primary care physician: Maria Roldan MD Consults: - Discharge Diagnosis (1) CHF exacerbation Status: Acute (2) Diabetes Status: Acute (3) DM type 2 (diabetes mellitus, type 2) Status: Acute (4) CAD (coronary artery disease) Status: Acute (5) Thrombocytopenia Status: Acute (6) CKD stage 3 secondary to diabetes Status: Acute Discharge Diagnosis: CHF exacerbation likely secondary to the patient not taking his Lasix due to frequent urination Type 2 diabetes mellitus-patient reports labile blood sugars at home and states 2 weeks ago his Levemir was increased from 25 twice a day to 30 twice a day Coronary artery disease Thrombocytopenia mild Chronic kidney disease Possible mild memory deficits - Laboratory Labs: 12/03/16 05:09 12/03/16 05:09 Laboratory Tests 12/01/16 12/01/16 12/01/16 20:09 20:09 22:51 Troponin I 0.015 0.021 B-Natriuretic Peptide 5800 H 12/02/16 08:54 Troponin I 0.028 B-Natriuretic Peptide - Radiology Radiology: Echocardiogram Type of Exam(s): US echo doppler complete DATE OF STUDY 12/02/2016 INDICATIONS Congestive heart failure. TECHNICAL QUALITY Technically good 2D, M-mode, Doppler echocardiographic images were submitted for interpretation. FINDINGS 1. CARDIAC CHAMBERS: The left atrium is dilated. Left ventricle is normal in size. The aortic root diameter of 4.0 cm is mildly dilated. The right heart appears to be normal in size. Normal RV contractility. Atherosclerosis in the aortic wall is noted. 2. LEFT VENTRICLE: Borderline LVH is present, measuring 10 mm in the posterior wall, 11 mm in the septal wall. Wall motion analysis is abnormal with basal anterior wall and septal hypokinesis, more prominent in the inferior septum. Inferolateral wall appears hypokinetic. Albright contractility appears preserved. LV systolic dysfunction of a mild degree appears to be present with an ejection fraction estimated at about 45%. Diastolic function parameters show E/A ratio of 1.4, E/e' ratio of 16.8, suggestive of grade 2/4 diastolic dysfunction (pseudonormal pattern). 3. VALVES: Aortic and mitral valve exhibit [id number] sclerotic changes, most evident in the posterior mitral annulus. Leaflet excursion and valve opening appears normal. Tricuspid valve structure and motion appear normal. Normal valve excursion. 4. DOPPLER: Mild insufficiency involving mitral, tricuspid and pulmonic valves , none of hemodynamic significance. No evidence of valvular stenosis. 5. No evidence of pericardial effusion, intracardiac masses, thrombi, vegetations or shunts. 6. Flow velocities are reduced at the aortic valve level and LVOT level, suggestive of reduced cardiac output. 7. Central venous pressure appears elevated based on partial respiratory variation of less than 50% and mildly dilated IVC. IMPRESSION 1. Left atrial enlargement. 2. Mild ischemic cardiomyopathy. Regional wall motion abnormality as described above suggestive of coronary artery disease with ejection fraction estimated at 45%. 3. Diastolic dysfunction grade 2/4 (pseudonormal pattern). 4. Mild mitral regurgitation. 5. Pulmonary hypertension, systolic PA pressure of 56 mmHg, with normal RV size and systolic function. 6. Elevated central venous pressure. 7. Mitral annular calcification. 8. Reduced cardiac output. RECOMMENDATION Cardiology consultation for suspected coronary artery disease. Chest x-ray Date of Exam: 12/03/16 Ordering Provider: Maria Del Carmen Saldana MD Type of Exam(s): XR chest 1V Reason for Exam(s): pulm edema Indication: pulm edema PROCEDURE: XR chest 1V: Encounter: Initial Comparison: December 01, 2016 Findings: Lungs are hypoinflated. Pulmonary vascular prominence has decreased. No new areas of consolidation. No pneumothorax. Probable trace effusions. Heart size and mediastinal contours are stable. Hiatal hernia. Impression: Improving pulmonary edema. History of Present Illness HPI: HPI on admission: This is a 80 y/o male who lives in an independent living setting. The patient has a history of ischemic cardiomyopathy in the past. The patient had noticed increased shortness of breath over the past 3 weeks with PND and orthopnea. The patient was seen by nursing today and noticed increased dyspnea and hypertension. They recommended that he come into the ED for evaluation. In the ED the patient had a CXR that demonstrated increased bilateral pleural effusion with slight pulm vascular congestion. The patient was not significantly hypoxic but was wheezing. The patient at this time will be admitted for diuresis and further assessment of his CHf. Objective Vital signs: Temperature 97.6 F 12/03/16 11:54 Pulse Rate 60 12/03/16 11:54 Respiratory Rate 20 12/03/16 11:54 Blood Pressure 151/82 H 12/03/16 11:54 Pulse Oximetry 93 12/03/16 11:54 Height/Weight/BMI: Height 1.73 m Weight 82.9 kg Body Mass Index 28.8 - Constitutional Present: no acute distress, well nourished, well developed - Routine HEENT Exam Head: Present: normocephalic, atraumatic - Routine Respiratory Exam Present: CTA bilaterally - Routine Cardiovascular Exam Present: RRR. Absent: murmur - Routine Abdominal Exam Present: soft. Absent: tenderness - Routine Extremities Exam Present: edema (trace bilateral) - Routine Skin Exam Present: dry, warm - Routine Neurological Exam Present: alert, normal speech - Routine Psychiatric Exam Present: normal affect, cooperative Hospital Course This is a general summary of the patient's hospital course. For more details refer to the complete medical record. Patient was admitted thru the ER with exacerbation of CHF. He was not taking his Lasix at home because it made him urinate too often. Initial evaluation included a chest x-ray showing bilateral pleural effusion, cardiomegaly, and slight pulmonary vascular congestion. Echo was performed-see report. Ejection fraction 45%. BNP was elevated at 5800. He was admitted for diuresis, oxygen and telemetry. His stay was uneventful. He had slight hypernatremia on admission which corrected by dismissal. He had a few low blood sugars overnight , so his insulin was adjusted. His chest x-ray improved along with his clinical condition. He participated in physical therapy and occupational therapy during his stay. They felt he could return home with home health. A ROBIN evaluation was done. Patient scored 13 indicating he would not be safe to go home alone. He was willing to go to assisted living at [facility] and was accepted. Patient was successfully weaned off his oxygen. Dismissed in stable condition to [facility], with instructions to get a BMP on December 06 and follow -up with Dr. Roldan within a week. Medicine changes/additions: Levemir 25 units in a.m. 15 units in p.m. Potassium chloride 10 mEq daily Hospital course: 12/01- - hospital admission Continue IV Lasix PT OT eval and treat Monitor electrolytes closely with diuresis SCDs for DVT prophylaxis Possible discharge in the next 1-2 days Echocardiogram was obtained and is pending Chest x-ray tomorrow 12/03/16 Patient no longer requires oxygen. He has been diuresed. He feels ready to go home. He had a ROBIN evaluation with a score which would recommend he did not return to his home alone. He is agreeable to go to assisted living at [facility]. He has been accepted and will be dismissed later today. He was instructed that he cannot stop taking his Lasix. We'll dismiss him on 40 mg daily and start potassium 10 mEq daily. Recheck BMP in 3 days. His insulin was changed to 25 units in the a.m. and 15 units in the p.m. due to low blood sugars overnight. See Dr. Roldan in 1 week. Time spent with patient: discharge greater than 30 minutes Discharge Plan - Med Rec/Dispo Referrals/Follow Up: Maria Roldan MD [Family Provider] - 1 Week (Please set patient up to see Dr. Roldan within a week) [facility] Instructions: [facility] Congestive Heart Failure Additional Instructions: Do NOT stop taking your Lasix! It's very important you don't stop taking this medication. Prescriptions: New Potassium Chloride 10 meq PO DAILY #30 tab.er.prt Furosemide [Lasix] 1 tab PO DAILY #30 tab Insulin Detemir [Levemir] 15 unit SQ HS #30 vial Continue Divalproex Sodium [Depakote] 500 mg PO BID 7 Days #14 Budesonide Flexhaler [Pulmicort 180 Mcgflexhaler] 2 puff INH BID 7 Days #0 Saw [place] 100 mg PO HS Calcium Polycarbophil [Fiber] 625 mg PO DAILY [place]-3/Dha/Epa/Fish Oil [Fish Oil [place]-3 EC 1,200 mg] 1 cap PO BID Calcium Carbonate [Calcium] 500 mg PO DAILY Furosemide [Lasix] 20 mg PO DAILY Magnesium Oxide [Magnesium] 400 mg PO BID Famotidine [Pepcid] 1 tab PO DAILY Aspirin 325 mg PO DAILY #0 Ascorbic Acid [Vitamin C] 500 mg PO DAILY #0 Multivitamin [Multi-Day Vitamins] 1 tab PO DAILY #0 Sitagliptin Phosphate [Januvia] 100 mg PO DAILY 7 Days #0 Tamsulosin HCl [Flomax] 0.4 mg PO HS 7 Days #0 Metoprolol Tartrate [Lopressor] 50 mg PO BID Changed Insulin Detemir [Levemir Flextouch] 25 unit SQ AM #1 Discharge Instructions/Outpatient Orders: Final Provider Discharge Instructions Location: Determined By Patient - [facility] <Maria Del Carmen Saldana - Last Filed: 12/03/16 20:09> Discharge Information Date of admission: 12/01/16 21:43 Attending Physician: Hermelindo Cole MD Primary care physician: Maria Roldan MD Consults: 12/03/16 13:30 Doctor [Physician Consult] [CONS] Routine Consulting Provider: Medhat Julian Reason For Exam: CONTINUED CARE Ordering Provider has Notified [employer]: Yes - Discharge Diagnosis (1) CHF exacerbation Status: Acute (2) Diabetes Status: Acute (3) DM type 2 (diabetes mellitus, type 2) Status: Acute (4) CAD (coronary artery disease) Status: Acute (5) Thrombocytopenia Status: Acute (6) CKD stage 3 secondary to diabetes Status: Acute - Laboratory Labs: 12/03/16 05:09 12/03/16 05:09 Objective Vital signs: Temperature 97.6 F 12/03/16 11:54 Pulse Rate 60 12/03/16 11:54 Respiratory Rate 20 12/03/16 11:54 Blood Pressure 151/82 H 12/03/16 11:54 Pulse Oximetry 93 12/03/16 11:54 Height/Weight/BMI: Height 1.73 m Weight 82.9 kg Body Mass Index 28.8 Hospital Course This is a general summary of the patient's hospital course. For more details refer to the complete medical record. Hospital course: 12/03/2016-I reviewed this chart, the patient history, and the POT PUSHER's/PA's documented findings as above. We discussed and formulated the assessment and plan as above with the additions below.-Dr. Saldana The patient is feeling well today. He is off of oxygen. He denies dyspnea. Chest is clear to auscultation. Cardiovascular reveals a regular rate and rhythm. Abdomen is soft and nontender. Extremities reveal no significant edema. Plan is for dismissal to assisted living today. He will need help making sure he is taking his medications. Hospital findings and discharge plans discussed this afternoon with Dr. Roldan
--- NOTE | 2016-12-03 16:16 | Extended Care Facility Orders ---
Admission Orders Admit to:: Other (assisted-living) Allergies/Adverse Reactions: Allergies No Known Allergies Allergy (Verified 12/01/16 19:52) Admitting Diagnosis: Congestive heart failure Admitting Physician: Maria Del Carmen Saldana M.D. Attending Physician: Maria Del Carmen Saldana M.D. Code Status: Full Code Anticiapted Length of Stay: 30 days or less Rehab Potential: good Rehab Prognosis: good Diet: Carbohydrate controlled, cardiac Wound/Incision Care: Not applicable May use Facility Protocol or Standing Orders: Yes May have flu vaccine: Yes Evaluations/Treatment: PT, OT [facility] Certification: I certify that SNF services are required to be given on an Inpatient basis because of the patients need for assisted care on a continuing basis for the condition(s) for which he/she received inpatient hospital services prior to his/her transfer to the SNF. SNF inpatient care is necessary for the following reasons Indication for Penitentiary: Diabetic Education, Teach Medication Management , Teach CHF, Teach Diabetes Mellitus Management - Additional Information In Event of Arrest: Start CPR,call 911,send patient to the ER Resident is Aware of Diagnosis: Yes Laboratory/Radiology: Check BMP on December 06. Send results to Dr. Roldan Referrals: Maria Roldan MD [Family Provider] - 1 Week (Please set patient up to see Dr. Roldan within a week)
[2016-12-03] MEDS ORDERED: PNEUMOCOCCAL 13 VACCINE 0.5ml INJECTION IM ONE (16:50)
== END 2016-12-03 15:30 | disposition home or self-care (01) | DRG 291 ==
LOC: ED 19:24 → MED 21:43
PROVIDERS: ADMIT Emergency Medicine; ATTEND Internal Medicine